=== PATIENT | male | born 1990 | race Caucasian/White ===

== ENCOUNTER 2017-01-09 16:28 | Emergency (ER) | payer OTHER ==
--- NOTE | 2017-01-09 18:22 | DIAGNOSTIC IMAGING REPORT ---
PROCEDURE: XR CHEST 1 VIEW INDICATION: CHEST PAIN TECHNIQUE: Single view chest. 1717 hours COMPARISON: None. FINDINGS: The cardiomediastinal contour and central vasculature are normal. Minor patchy density in the left infrahilar region, questionable. Otherwise clear lungs without effusion or pneumothorax. The osseous structures are intact. IMPRESSION: 1. Questionable patchy parenchymal left infrahilar density. PA and lateral chest is recommended.
--- NOTE | 2017-01-09 18:24 | DIAGNOSTIC IMAGING REPORT ---
PROCEDURE: XR CHEST 2 VIEW INDICATION: CHEST PAIN TECHNIQUE: Two views. COMPARISON: Film performed earlier the same day FINDINGS: The cardiomediastinal contour and central vasculature are within normal limits. Minor hazy parenchymal density in the left infrahilar region with mild peribronchial thickening. No dense consolidations suggest pneumonia. No effusion or pneumothorax. The visualized osseous structures are intact. IMPRESSION: 1. Minor hazy oval density with peribronchial thickening. This may be early bronchitis. Correlate clinically.
--- NOTE | 2017-01-09 19:03 | ED CLINICAL REPORT ---
Clinical Report - Physicians/Mid Levels [facility] [address] [place] [address] 01/09/2017 16:30 Patient: SHAQ VALLADARES Time Seen: 17:04. Arrived- By private vehicle. Historian- patient. HISTORY OF PRESENT ILLNESS Chief Complaint: CHEST PAIN. This started today and is still present but is better now. It was abrupt in onset. Onset during while driving. At its maximum, severity described as 5 / 10. When seen in the E.D., it was almost gone. Modifying factors. Not worsened by anything. It is described as pressure. No radiation. The patient has had nausea. No vomiting, difficulty breathing or diaphoresis. Similar symptoms previously: Several times. Diagnosis: biliary disease (palpitations). REVIEW OF SYSTEMS No chills, fever, sweats, calf pain or cough. No difficulty breathing, pedal edema, abdominal pain, constipation or diarrhea. No nausea, vomiting or urinary problems. He has had palpitations. He has had numbness of the right hand (mild) and left hand (mild). He had a recent echo and has an appointment pending in 2 weeks with a crew trainer in [place]. All systems otherwise negative, except as recorded above. PAST HISTORY Problems: Heart palpatations . Gallstone(s). Additional Surgeries: Gallbladder Surgery. Medications: Cortisol Spacecraft Systems Engineer Oral. Vitamins/Minerals Oral. Allergies: No Known Drug Allergy. SOCIAL HISTORY Never smoker. No alcohol use or drug use. Is an out of state resident. Visiting locally. FAMILY HISTORY Diabetes in first-degree relative (mother and sibling); stroke in grandparent; cancer in grandparent. ADDITIONAL NOTES The nursing notes have been reviewed. PHYSICAL EXAM Vital Signs: 01/09/2017 16:35 BP: 153/97. HR: 80. RR: 18. O2 saturation: 100%. Temp: 98.4 F. Have been reviewed. Appearance: Alert. Anxious. Eyes: Pupils equal, round and reactive to light. ENT: Pharynx normal. Neck: Normal inspection. Neck supple. CVS: Normal heart rate and rhythm. Heart sounds normal. Respiratory: No respiratory distress. Breath sounds normal. Abdomen: Soft and nontender. Bowel sounds normal. No organomegaly. No mass. Back: Normal external inspection. Skin: Skin warm and dry. Normal skin color. No rash. Normal skin turgor. (he did have a mild facial and neck sunburn.). Extremities: Extremities exhibit normal ROM. No calf tenderness. No lower extremity edema. LABS, X-RAYS, AND EKG EKG: No acute process. Normal EKG. Rate: 84. Prior EKG unavailable. The study has been independently viewed by me. Chest X-ray: (IMPRESSION: 1. Questionable patchy parenchymal left infrahilar density. PA and lateral chest is recommended.). The X-rays were interpreted contemporaneously by me and discussed with the radiologist. Chest X-ray #2: (IMPRESSION: 1. Minor hazy oval density with peribronchial thickening. This may be early bronchitis. Correlate clinically). The X-rays were interpreted by the radiologist and contemporaneously by me. Laboratory Tests: UA-Culture if indicated: (MEME: 01/09/2017 18:00) ( [facility] 01/09/2017 18:30) Final results Test Result Flag Units (Reference) URINE COLOR YELLOW URINE APPEARANCE CLEAR URINE GLUCOSE NEGATIVE (NEGATIVE) URINE BILIRUBIN NEGATIVE (NEGATIVE) URINE KETONE NEGATIVE (NEGATIVE) URINE SPECIFIC GRAVITY 1.015 (1.010-1.030) URINE PH 6.0 (5.0-8.0) URINE PROTEIN NEGATIVE (NEGATIVE) URINE UROBILINOGEN 0.2 EU/dL (0.2-1.0) URINE NITRITE NEGATIVE (NEGATIVE) URINE BLOOD NEGATIVE (NEGATIVE) URINE LEUK ESTERASE NEGATIVE (NEGATIVE) URINE RBC NONE SEEN rbc/hpf (0-1) URINE WBC NONE SEEN wbc/hpf (0-1) URINE EPITHELIAL CELLS NONE SEEN EPI/hpf (0-5) URINE BACTERIA NONE SEEN (NONE SEEN) URINE COMMENT CULT NOT INDICATED URINE CULTURES ARE SET-UP BASED ON THE FOLLOWING CRITERIA:POSITIVE NITRITEPOSITIVE LEUKOCYTE ESTERASEGREATER THAN 10 WHITE BLOOD CELLSMODERATE (2+) OR GREATER BACTERIA CBC w Diff: (MEME: 01/09/2017 16:40) ( [facility] 01/09/2017 17:24) Final results Test Result Flag Units (Reference) WHITE BLOOD COUNT 7.7 K/uL (4.5-11.5) RED BLOOD COUNT 5.51 M/uL (4.50-5.90) HEMOGLOBIN 16.7 gm/dL (13.5-17.5) HEMATOCRIT 49.4 % (41.0-53.0) MEAN CELL VOLUME 90 fL (80-100) MEAN CORPUSCULAR HGB 30 pg (26-34) MEAN CORPUSCULAR HGB CONC 34 g/dL (31-37) RED CELL DISTRIBUTION WIDTH 12.3 % (11.6-14.8) PLATELET COUNT 179 K/uL (150-400) NEUTROPHIL % 55.5 % (50-75) LYMPH % 35.4 % (25-40) MONO % 7.1 % (3-14) EOSINOPHIL % 1.7 % (0-4) BASOPHIL % 0.3 % (0-2) [id number]: (MEME: 01/09/2017 16:40) ( [facility] 01/09/2017 17:26) Final results Test Result Flag Units (Reference) D-DIMER QUANTITATIVE < 0.27 L ug/mLFEU (0.27-0.52) The primary value of this quantitative assay relates toits negative predictive value (i.e. exclusion) of pulmonaryembolism/deep vein thrombosis/DIC.Elevated levels of d-dimer may also occur with:, age, cancer, inflammation, liver disease,post-op, infection, hematoma, coronary disease, peripheralarteriopathy, bleeding disorders and thrombolytic treatment.Results should be correlated with other clinical andradiological data.Testing Methodology: Latex Immunoassay BNP: (MEME: 01/09/2017 16:40) ( [facility] 01/09/2017 17:39) Final results Test Result Flag Units (Reference) B-TYPE NATRIURETIC PEPTIDE < 5.0 L pg/ml (5-100) CMP: (MEME: 01/09/2017 16:40) ( [facility] 01/09/2017 17:34) Final results Test Result Flag Units (Reference) GLUCOSE 114 H mg/dL (70-110) BUN 14 mg/dL (7-18) CREATININE 1.1 mg/dL (0.6-1.3) Estimated GFR >60 mL/min Estimated GFR- >60 mL/min Note: Persistent reduction over 3 months in eGFR<60 mL/min/1.73 m2 defines CKD. Patients with eGFR values>=60 mL/min/1.73 m2 may also have CKD if evidence ofpersistent proteinuria. Additional information may be foundat www.kidney.org. SODIUM 143 mmol/L (136-145) POTASSIUM 3.8 mmol/L (3.5-5.1) CHLORIDE 104 mmol/L (98-107) CARBON DIOXIDE 29 mmol/L (21-32) CALCIUM 9.6 mg/dL (8.5-10.1) TOTAL PROTEIN 8.0 g/dL (6.4-8.2) ALBUMIN 4.8 g/dL (3.3-5.0) BILIRUBIN, TOTAL 0.4 mg/dL (0.0-1.0) ALKALINE PHOSPHATASE 90 U/L (46-116) AST (SGOT) 19 U/L (15-37) ALT (SGPT) 28 U/L (12-78) LIPASE 282 U/L (73-393) AMYLASE 61 U/L (25-115) CPK 108 U/L (24-260) TROPONIN I <0.05 L ng/mL (0.00-1.5) TROPONIN REFERENCE RANGE:<0.1 NEGATIVE0.1-1.5 INDETERMINANT>1.5 POSITIVE . PROGRESS AND PROCEDURES Course of Care: Patient is stable. Patient/family counseled. Old medical records ordered. Old records unavailable. Disposition: Discharged. Condition: stable. CLINICAL IMPRESSION First degree sunburn. Anxiety reaction. INSTRUCTIONS Avoid stimulants (such as cigarettes, coffee, cold medicines, sinus medicines, street drugs). (Make certain that you wear plenty of sunscreen!). Warnings: Further evaluation is necessary. GENERAL WARNINGS: Return or contact your physician immediately if your condition worsens or changes unexpectedly, if not improving as expected, or if other problems arise. Follow-up: Follow up with a crew trainer as scheduled. Understanding of the discharge instructions verbalized by patient and family. (Electronically signed by Henry Harvey MD 01/10/2017 12:48) Addenda for SHAQ VALLADARES VisitID: [id number] Date: 01/09/2017 01/09/2017 19:20 [place] [id number] (Electronically signed by Capo Burnette R.N. - 01/09/2017 19:20)
--- NOTE | 2017-01-09 19:03 | ED ORDER SUMMARY ---
..... Patient: SHAQ VALLADARES OrderSheet [facility] VisitID: [id number] [place] [address] 26y, M Registration Date/Time: 01/09/2017 ORDER SHEET Weight: 102.0 kg (stated) Allergies: No Known Drug Allergy GENERAL ORDERS: Chest 1V Urgent (17:05 01/09/2017 aTj SOLIS) (Ack 17:11 Edwin) (17:17 Viviana) First Breaker Feeder (Continuous) (17:05 01/09/2017 Taj SOLIS) (17:29 LWhalen R.N.) CBC w Diff Urgent (17:01/09/2017 Taj SOLIS) (Ack 17:11 Edwin) (17:29 LWhalen R.N.) CMP Urgent (17:01/09/2017 Taj SOLIS) (Ack 17:11 Edwin) (17:29 LWhalen R.N.) UA-Culture if indicated Urgent (17:06 01/09/2017 Taj SOLIS) (Ack 17:11 Edwin) (18:06 ALawrence ER Tech1) Amylase Urgent (17:06 01/09/2017 Taj SOLIS) (Ack 17:11 Edwin) (17:29 LWhalen R.N.) Lipase Urgent (17:01/09/2017 Taj SOLIS) (Ack 17:11 Edwin) (17:29 LWhalen R.N.) BNP Urgent (17:06 01/09/2017 Taj SOLIS) (Ack 17:11 Edwin) (17:29 LWhalen R.N.) D-Dimer Urgent (17:01/09/2017 Taj SOLIS) (Ack 17:11 Edwin) (17:29 LWhalen R.N.) CPK Urgent (17:01/09/2017 Taj SOLIS) (Ack 17:11 Edwin) (17:29 LWhalen R.N.) Troponin-I Urgent (17:06 01/09/2017 Taj SOLIS) (Ack 17:11 Edwin) (17:29 LWfadia R.N.) Oxygen (2 L/min) (NC) (17:06 01/09/2017 Taj SOLIS) (17:29 LWhaljet R.N.) Pulse oximeter (17:01/09/2017 Taj SOLIS) (17:29 LWhaljet R.N.) EKG - ER Stat (17:01/09/2017 Taj SOLIS) (17:11 Edwin) Vitals - Orthostatic (17:01/09/2017 Taj SOLIS) (17:29 LWfadia R.N.) Chest 2V Urgent (17:33 01/09/2017 Edwin verbal order read back to Taj SOLIS) (17:34 Edwin) MEDICATION ORDERS: IV FLUIDS: IV NS : initial bolus 1000 mL (1000 mL/hr), then 125 mL/hr for 4h (NOW); Urgent (17:01/09/2017 Taj SOLIS) (17:30 LWhalen R.N.) IV Saline Lock (17:01/09/2017 Taj SOLIS) (17:30 Sundeep R.N.) ORDER SHEET NOTES: [Electronically signed by Capo Burnette R.N. (19:19 01/09/2017)] [Electronically signed by Henry Harvey MD (12:48 01/10/2017)] [Electronically locked/signed by Capo Burnette R.N. (19:19 01/09/2017)]
--- NOTE | 2017-01-09 19:03 | ED CLINICAL REPORT ---
Clinical Report - Physicians/Mid Levels [facility] [address] [place] [address] 01/09/2017 16:30 Patient: SHAQ VALLADARES Time Seen: 17:04. Arrived- By private vehicle. Historian- patient. HISTORY OF PRESENT ILLNESS Chief Complaint: CHEST PAIN. This started today and is still present but is better now. It was abrupt in onset. Onset during while driving. At its maximum, severity described as 5 / 10. When seen in the E.D., it was almost gone. Modifying factors. Not worsened by anything. It is described as pressure. No radiation. The patient has had nausea. No vomiting, difficulty breathing or diaphoresis. Similar symptoms previously: Several times. Diagnosis: biliary disease (palpitations). REVIEW OF SYSTEMS No chills, fever, sweats, calf pain or cough. No difficulty breathing, pedal edema, abdominal pain, constipation or diarrhea. No nausea, vomiting or urinary problems. He has had palpitations. He has had numbness of the right hand (mild) and left hand (mild). He had a recent echo and has an appointment pending in 2 weeks with a research assoc in [place]. All systems otherwise negative, except as recorded above. PAST HISTORY Problems: Heart palpatations . Gallstone(s). Additional Surgeries: Gallbladder Surgery. Medications: Cortisol Hand Rug Cleaner Oral. Vitamins/Minerals Oral. Allergies: No Known Drug Allergy. SOCIAL HISTORY Never smoker. No alcohol use or drug use. Is an out of state resident. Visiting locally. FAMILY HISTORY Diabetes in first-degree relative (mother and sibling); stroke in grandparent; cancer in grandparent. ADDITIONAL NOTES The nursing notes have been reviewed. PHYSICAL EXAM Vital Signs: 01/09/2017 16:35 BP: 153/97. HR: 80. RR: 18. O2 saturation: 100%. Temp: 98.4 F. Have been reviewed. Appearance: Alert. Anxious. Eyes: Pupils equal, round and reactive to light. ENT: Pharynx normal. Neck: Normal inspection. Neck supple. CVS: Normal heart rate and rhythm. Heart sounds normal. Respiratory: No respiratory distress. Breath sounds normal. Abdomen: Soft and nontender. Bowel sounds normal. No organomegaly. No mass. Back: Normal external inspection. Skin: Skin warm and dry. Normal skin color. No rash. Normal skin turgor. (he did have a mild facial and neck sunburn.). Extremities: Extremities exhibit normal ROM. No calf tenderness. No lower extremity edema. LABS, X-RAYS, AND EKG EKG: No acute process. Normal EKG. Rate: 84. Prior EKG unavailable. The study has been independently viewed by me. Chest X-ray: (IMPRESSION: 1. Questionable patchy parenchymal left infrahilar density. PA and lateral chest is recommended.). The X-rays were interpreted contemporaneously by me and discussed with the radiologist. Chest X-ray #2: (IMPRESSION: 1. Minor hazy oval density with peribronchial thickening. This may be early bronchitis. Correlate clinically). The X-rays were interpreted by the radiologist and contemporaneously by me. Laboratory Tests: UA-Culture if indicated: (MEME: 01/09/2017 18:00) ( [facility] 01/09/2017 18:30) Final results Test Result Flag Units (Reference) URINE COLOR YELLOW URINE APPEARANCE CLEAR URINE GLUCOSE NEGATIVE (NEGATIVE) URINE BILIRUBIN NEGATIVE (NEGATIVE) URINE KETONE NEGATIVE (NEGATIVE) URINE SPECIFIC GRAVITY 1.015 (1.010-1.030) URINE PH 6.0 (5.0-8.0) URINE PROTEIN NEGATIVE (NEGATIVE) URINE UROBILINOGEN 0.2 EU/dL (0.2-1.0) URINE NITRITE NEGATIVE (NEGATIVE) URINE BLOOD NEGATIVE (NEGATIVE) URINE LEUK ESTERASE NEGATIVE (NEGATIVE) URINE RBC NONE SEEN rbc/hpf (0-1) URINE WBC NONE SEEN wbc/hpf (0-1) URINE EPITHELIAL CELLS NONE SEEN EPI/hpf (0-5) URINE BACTERIA NONE SEEN (NONE SEEN) URINE COMMENT CULT NOT INDICATED URINE CULTURES ARE SET-UP BASED ON THE FOLLOWING CRITERIA:POSITIVE NITRITEPOSITIVE LEUKOCYTE ESTERASEGREATER THAN 10 WHITE BLOOD CELLSMODERATE (2+) OR GREATER BACTERIA CBC w Diff: (MEME: 01/09/2017 16:40) ( [facility] 01/09/2017 17:24) Final results Test Result Flag Units (Reference) WHITE BLOOD COUNT 7.7 K/uL (4.5-11.5) RED BLOOD COUNT 5.51 M/uL (4.50-5.90) HEMOGLOBIN 16.7 gm/dL (13.5-17.5) HEMATOCRIT 49.4 % (41.0-53.0) MEAN CELL VOLUME 90 fL (80-100) MEAN CORPUSCULAR HGB 30 pg (26-34) MEAN CORPUSCULAR HGB CONC 34 g/dL (31-37) RED CELL DISTRIBUTION WIDTH 12.3 % (11.6-14.8) PLATELET COUNT 179 K/uL (150-400) NEUTROPHIL % 55.5 % (50-75) LYMPH % 35.4 % (25-40) MONO % 7.1 % (3-14) EOSINOPHIL % 1.7 % (0-4) BASOPHIL % 0.3 % (0-2) [id number]: (MEME: 01/09/2017 16:40) ( [facility] 01/09/2017 17:26) Final results Test Result Flag Units (Reference) D-DIMER QUANTITATIVE < 0.27 L ug/mLFEU (0.27-0.52) The primary value of this quantitative assay relates toits negative predictive value (i.e. exclusion) of pulmonaryembolism/deep vein thrombosis/DIC.Elevated levels of d-dimer may also occur with:, age, cancer, inflammation, liver disease,post-op, infection, hematoma, coronary disease, peripheralarteriopathy, bleeding disorders and thrombolytic treatment.Results should be correlated with other clinical andradiological data.Testing Methodology: Latex Immunoassay BNP: (MEME: 01/09/2017 16:40) ( [facility] 01/09/2017 17:39) Final results Test Result Flag Units (Reference) B-TYPE NATRIURETIC PEPTIDE < 5.0 L pg/ml (5-100) CMP: (MEME: 01/09/2017 16:40) ( [facility] 01/09/2017 17:34) Final results Test Result Flag Units (Reference) GLUCOSE 114 H mg/dL (70-110) BUN 14 mg/dL (7-18) CREATININE 1.1 mg/dL (0.6-1.3) Estimated GFR >60 mL/min Estimated GFR- >60 mL/min Note: Persistent reduction over 3 months in eGFR<60 mL/min/1.73 m2 defines CKD. Patients with eGFR values>=60 mL/min/1.73 m2 may also have CKD if evidence ofpersistent proteinuria. Additional information may be foundat www.kidney.org. SODIUM 143 mmol/L (136-145) POTASSIUM 3.8 mmol/L (3.5-5.1) CHLORIDE 104 mmol/L (98-107) CARBON DIOXIDE 29 mmol/L (21-32) CALCIUM 9.6 mg/dL (8.5-10.1) TOTAL PROTEIN 8.0 g/dL (6.4-8.2) ALBUMIN 4.8 g/dL (3.3-5.0) BILIRUBIN, TOTAL 0.4 mg/dL (0.0-1.0) ALKALINE PHOSPHATASE 90 U/L (46-116) AST (SGOT) 19 U/L (15-37) ALT (SGPT) 28 U/L (12-78) LIPASE 282 U/L (73-393) AMYLASE 61 U/L (25-115) CPK 108 U/L (24-260) TROPONIN I <0.05 L ng/mL (0.00-1.5) TROPONIN REFERENCE RANGE:<0.1 NEGATIVE0.1-1.5 INDETERMINANT>1.5 POSITIVE . PROGRESS AND PROCEDURES Course of Care: Patient is stable. Patient/family counseled. Old medical records ordered. Old records unavailable. Disposition: Discharged. Condition: stable. CLINICAL IMPRESSION First degree sunburn. Anxiety reaction. INSTRUCTIONS Avoid stimulants (such as cigarettes, coffee, cold medicines, sinus medicines, street drugs). (Make certain that you wear plenty of sunscreen!). Warnings: Further evaluation is necessary. GENERAL WARNINGS: Return or contact your physician immediately if your condition worsens or changes unexpectedly, if not improving as expected, or if other problems arise. Follow-up: Follow up with a research assoc as scheduled. Understanding of the discharge instructions verbalized by patient and family. (Electronically signed by Henry Harvey MD 01/10/2017 12:48) Addenda for SHAQ VALLADARES VisitID: [id number] Date: 01/09/2017 01/09/2017 19:20 [place] [id number] (Electronically signed by Capo Burnette R.N. - 01/09/2017 19:20)
--- NOTE | 2017-01-09 19:03 | ED NURSING NOTES ---
Clinical Report - Nurses [facility] [address] [place] [address] 01/09/2017 16:30 Patient: SHAQ VALLADARES TRIAGE Triage time 16:35 Jan 09 2017. Acuity: LEVEL 3. Chief Complaint: CHEST PAIN and (memory loss). JUSTO COMA SCORE: [place] Coma Scale: 15- eyes open spontaneously (4); best verbal response- oriented x 4 (5); best motor response- obeys commands (6). --16:42 Francoise Mayes R.N. 16:35 01/09/17. BP: 153/97. HR: 80. RR: 18. O2 saturation: 100%. Temp: 98.4 F. Pain level now 3/10. --16:42 Francoise Mayes R.N. Weight: 102 kg stated. Height/Length: 74 inches Per Patient. BMI: 28.9. --16:41 Francoise Mayes R.N. Medications Vitamins/Minerals Oral. --16:37 Francoise Mayes R.N. Cortisol Torch Straightener Oral. --16:37 Francoise Mayes R.N. Allergies No Known Drug Allergy. --16:38 Francoise Mayes R.N. History Arrived by private vehicle. Historian: patient. Accompanied by family. This started just prior to arrival. ( Was driving then started to get mixed up on the words he was saying and couldn't get them out. He started having chest pain and heart palpitations.). No difficulty breathing, sweating episodes, nausea, vomiting or fever. No cough. PAST MEDICAL HX: No history of diabetes mellitus, hypertension, heart disease or lung disease. Immunizations: up-to-date. SOCIAL HX: Never smoker. No alcohol use or drug use. SELF HARM ASSESSMENT: A self harm assessment was performed. The patient answered "no" to the question "Have you recently felt down, depressed, or hopeless?" and "Do you have thoughts of harming or killing yourself?". FALL RISK ASSESSMENT: Fall risk assessment completed. No fall risk identified. NUTRITIONAL RISK ASSESSMENT: The nutritional risk assessment revealed no deficiencies. FUNCTIONAL ASSESSMENT: Functional assessment: no impairments noted. LEARNING NEEDS ASSESSMENT: The learning needs assessment revealed no barriers. ABUSE ASSESSMENT: Abuse assessment: (yes) The patient was asked "Do you feel safe in your home?". SKIN INTEGRITY ASSESSMENT: Skin integrity risk assessment completed. No skin integrity risk identified. --16:42 Francoise Mayes R.N. PROBLEMS: Heart palpatations . Gallstone(s). --16:39 Francoise Mayes R.N. ADDITIONAL SURGERIES: Gallbladder Surgery. --16:39 Francoise Mayes R.N. Interventions ID band on patient. --16:42 Francoise Mayes R.N. PHYSICAL ASSESSMENT Ambulatory to room. GENERAL / NEURO / PSYCH: Alert. Oriented X 4. Appears anxious. HEENT: Mucous membranes are pink. RESPIRATORY: Respirations not labored. Breath sounds within normal limits. ( c/o chest pain more pressure then anything per pt). CVS: Normal sinus rhythm noted. Heart sounds within normal limits. Pulses within normal limits. Capillary refill less than 2 seconds. GI / : Abdomen soft and nontender. EXTREMITIES: No lower extremity edema. SKIN: Skin is warm and dry. Skin is non-tender. ( Sunburn). --16:43 Francoise Mayes R.N. NURSING PROGRESS NOTES The initial plan of care for this patient includes an assessment with efforts to address patient positioning, appropriate ambient lighting and comfortable environmental temperature; impairment of the cardiovascular system. tableman, pulse oximeter and NIBP monitor placed on patient. Patient gowned. Head of bed elevated 75 degrees. Reassurance given. Call light placed in reach. Side rails up x 1. Bed placed in lowest position. Brakes of bed on. --16:43 Francoise Mayes R.N. 16:43 01/09/2017 Site #1 started via IV in the left antecubital space with an 20g angiocath, with aseptic technique and good blood return; one attempt. Blood drawn: rainbow set. Labeled in the presence of the patient and sent to the lab. Saline lock flushed with 10 mL saline. --16:43 Francoise Mayes R.N. EKG time: (1640). EKG was ordered, performed by a tech and shown to the ED physician. --17:14 Lety Torres 17:30 01/09/2017 Started bag #1 1000 mL IV Fluids IV NS (Saline); at 999 mL/hr over 1 hour(s) via site #1 via dial-a-flow. Allergies verified and confirmed 5 rights. IV patency established. IV site checked: no pain, redness, or swelling. IV flushed thoroughly pre- and post-medication administration. --17:30 Francoise Mayes R.N. <<STRICKEN ENTRY-- 17:25 01/09/17. BP: 142/80. HR: 83. O2 saturation: 98%. Additional comments: Orthostatic vitals done. Sittin/81, HR 92, Sat 98%. Lyin/85, HR 100, Sat 97%. --17:37 Mauro Oakes ER [employer] --END STRIKE>> Correction. --17:43 Mauro Oakes ER [employer] 17:43 01/09/17. BP: 142/80 taken while lying. HR: 83. O2 saturation: 98%. Additional comments: Orthstatic vitals: Sittin/81 HR 92 Sat 98%. Standin/85 HR 100 Sat 97%. --17:45 Mauro Oakes ER [employer] 18:35 01/09/2017 IV Fluids IV NS Bag Change: bag #1 infused. Total amount infused: 1000. STARTED bag #2 (1000 mL) at 125 mL/hr via IV pump. IV patency established. IV site checked: no pain, redness, or swelling. IV flushed thoroughly. --18:37 Aubree Rodriguez R.N. 18:45 01/09/17. BP: 127/72. HR: 78. RR: 18. O2 saturation: 98%. 18:30 01/09/17. BP: 133/70. HR: 74. RR: 18. O2 saturation: 98%. 18:00 01/09/17. BP: 143/75. HR: 82. RR: 18. O2 saturation: 98%. 17:43 01/09/17. BP: 142/80 taken while lying. HR: 83. O2 saturation: 98%. Additional comments: Orthstatic vitals: Sittin/81 HR 92 Sat 98%. Standin/85 HR 100 Sat 97%. 17:30 01/09/17. BP: 139/78. HR: 77. RR: 18. O2 saturation: 98%. 17:15 01/09/17. BP: 142/80. HR: 76. RR: 11. O2 saturation: 98%. 17:00 01/09/17. BP: 145/82. HR: 78. RR: 17. O2 saturation: 98%. --18:52 Francoise Mayes R.N. ( Report received from Francoise Pinto RN). --19:00 Capo Burnette R.N. 19:09 01/09/2017 IV Fluids IV NS Discontinued: discontinued upon discharge. IV patency established. --19:17 Capo Burnette R.N. DISPOSITION / DISCHARGE 19:09 01/09/2017 Site #1 removed upon discharge. Manual pressure and bandage applied. --19:18 Caop Burnette R.N. Departure time: 19:16. Condition at departure: stable. No learning barriers present. Discharge instructions provided and reviewed with paraffin plant operator and the patient. Reviewed warnings. Reviewed referrals for followup. Patient and paraffin plant operator verbalized understanding. Written instructions provided in Bhutanese. The patient was discharged home and accompanied by paraffin plant operator. He left the Emergency Department ambulatory and via private vehicle. Patient driving. --19:19 Capo Burnette R.N. 19:16 01/09/17. BP: 133/72. HR: 77. RR: 12 (regular and unlabored). O2 saturation: 100% on room air. Pain level now: 09/24. --19:19 Capo Burnette R.N. Locked/Released at 01/09/2017 19:19 by Capo Burnette R.N.
--- NOTE | 2017-01-09 19:03 | ED ORDER SUMMARY ---
..... Patient: SHAQ VALLADARES OrderSheet [facility] VisitID: [id number] [place] [address] 26y, M Registration Date/Time: 01/09/2017 ORDER SHEET Weight: 102.0 kg (stated) Allergies: No Known Drug Allergy GENERAL ORDERS: Chest 1V Urgent (17:05 01/09/2017 Taj SOLIS) (Ack 17:11 Edwin) (17:17 Viviana) Incinerator Plant General Supervisor (Continuous) (17:05 01/09/2017 Taj SOLIS) (17:29 LWhalen R.N.) CBC w Diff Urgent (17:01/09/2017 Taj SOLIS) (Ack 17:11 Edwin) (17:29 LWhalen R.N.) CMP Urgent (17:01/09/2017 Taj SOLIS) (Ack 17:11 Edwin) (17:29 LWhalen R.N.) UA-Culture if indicated Urgent (17:06 01/09/2017 Taj SOLIS) (Ack 17:11 Edwin) (18:06 ALawrence ER Tech1) Amylase Urgent (17:06 01/09/2017 Taj SOLIS) (Ack 17:11 Edwin) (17:29 LWhalen R.N.) Lipase Urgent (17:01/09/2017 Taj SOLIS) (Ack 17:11 Edwin) (17:29 LWhalen R.N.) BNP Urgent (17:06 01/09/2017 Taj SOLIS) (Ack 17:11 Edwin) (17:29 LWhalen R.N.) D-Dimer Urgent (17:01/09/2017 Taj SOLIS) (Ack 17:11 Edwin) (17:29 LWhalen R.N.) CPK Urgent (17:01/09/2017 Taj SOLIS) (Ack 17:11 Edwin) (17:29 LWhalen R.N.) Troponin-I Urgent (17:06 01/09/2017 Taj SOLIS) (Ack 17:11 Edwin) (17:29 LWfadia R.N.) Oxygen (2 L/min) (NC) (17:06 01/09/2017 Taj SOLIS) (17:29 LWhaljet R.N.) Pulse oximeter (17:01/09/2017 Taj SOLIS) (17:29 LWhaljet R.N.) EKG - ER Stat (17:01/09/2017 Taj SOLIS) (17:11 Edwin) Vitals - Orthostatic (17:01/09/2017 Taj SOLIS) (17:29 LWfadia R.N.) Chest 2V Urgent (17:33 01/09/2017 Edwin verbal order read back to Taj SOLIS) (17:34 Edwin) MEDICATION ORDERS: IV FLUIDS: IV NS : initial bolus 1000 mL (1000 mL/hr), then 125 mL/hr for 4h (NOW); Urgent (17:01/09/2017 Taj SOLIS) (17:30 LWhalen R.N.) IV Saline Lock (17:01/09/2017 Taj SOLIS) (17:30 Sundeep R.N.) ORDER SHEET NOTES: [Electronically signed by Capo Burnette R.N. (19:19 01/09/2017)] [Electronically signed by Henry Harvey MD (12:48 01/10/2017)] [Electronically locked/signed by Capo Burnette R.N. (19:19 01/09/2017)]
--- NOTE | 2017-01-09 19:03 | ED NURSING NOTES ---
Clinical Report - Nurses [facility] [address] [place] [address] 01/09/2017 16:30 Patient: SHAQ VALLADARES TRIAGE Triage time 16:35 Jan 09 2017. Acuity: LEVEL 3. Chief Complaint: CHEST PAIN and (memory loss). JUSTO COMA SCORE: [place] Coma Scale: 15- eyes open spontaneously (4); best verbal response- oriented x 4 (5); best motor response- obeys commands (6). --16:42 Francoise Mayes R.N. 16:35 01/09/17. BP: 153/97. HR: 80. RR: 18. O2 saturation: 100%. Temp: 98.4 F. Pain level now 3/10. --16:42 Francoise Mayes R.N. Weight: 102 kg stated. Height/Length: 74 inches Per Patient. BMI: 28.9. --16:41 Francoise Mayes R.N. Medications Vitamins/Minerals Oral. --16:37 Francoise Mayes R.N. Cortisol Proposal Engineer Oral. --16:37 Francoise Mayes R.N. Allergies No Known Drug Allergy. --16:38 Francoise Mayes R.N. History Arrived by private vehicle. Historian: patient. Accompanied by family. This started just prior to arrival. ( Was driving then started to get mixed up on the words he was saying and couldn't get them out. He started having chest pain and heart palpitations.). No difficulty breathing, sweating episodes, nausea, vomiting or fever. No cough. PAST MEDICAL HX: No history of diabetes mellitus, hypertension, heart disease or lung disease. Immunizations: up-to-date. SOCIAL HX: Never smoker. No alcohol use or drug use. SELF HARM ASSESSMENT: A self harm assessment was performed. The patient answered "no" to the question "Have you recently felt down, depressed, or hopeless?" and "Do you have thoughts of harming or killing yourself?". FALL RISK ASSESSMENT: Fall risk assessment completed. No fall risk identified. NUTRITIONAL RISK ASSESSMENT: The nutritional risk assessment revealed no deficiencies. FUNCTIONAL ASSESSMENT: Functional assessment: no impairments noted. LEARNING NEEDS ASSESSMENT: The learning needs assessment revealed no barriers. ABUSE ASSESSMENT: Abuse assessment: (yes) The patient was asked "Do you feel safe in your home?". SKIN INTEGRITY ASSESSMENT: Skin integrity risk assessment completed. No skin integrity risk identified. --16:42 Francoise Mayes R.N. PROBLEMS: Heart palpatations . Gallstone(s). --16:39 Francoise Mayes R.N. ADDITIONAL SURGERIES: Gallbladder Surgery. --16:39 Francoise Mayes R.N. Interventions ID band on patient. --16:42 Francoise Mayes R.N. PHYSICAL ASSESSMENT Ambulatory to room. GENERAL / NEURO / PSYCH: Alert. Oriented X 4. Appears anxious. HEENT: Mucous membranes are pink. RESPIRATORY: Respirations not labored. Breath sounds within normal limits. ( c/o chest pain more pressure then anything per pt). CVS: Normal sinus rhythm noted. Heart sounds within normal limits. Pulses within normal limits. Capillary refill less than 2 seconds. GI / : Abdomen soft and nontender. EXTREMITIES: No lower extremity edema. SKIN: Skin is warm and dry. Skin is non-tender. ( Sunburn). --16:43 Francoise Mayes R.N. NURSING PROGRESS NOTES The initial plan of care for this patient includes an assessment with efforts to address patient positioning, appropriate ambient lighting and comfortable environmental temperature; impairment of the cardiovascular system. monitoring specialist, pulse oximeter and NIBP monitor placed on patient. Patient gowned. Head of bed elevated 75 degrees. Reassurance given. Call light placed in reach. Side rails up x 1. Bed placed in lowest position. Brakes of bed on. --16:43 Francoise Mayes R.N. 16:43 01/09/2017 Site #1 started via IV in the left antecubital space with an 20g angiocath, with aseptic technique and good blood return; one attempt. Blood drawn: rainbow set. Labeled in the presence of the patient and sent to the lab. Saline lock flushed with 10 mL saline. --16:43 Francoise Mayes R.N. EKG time: (1640). EKG was ordered, performed by a tech and shown to the ED physician. --17:14 Lety Torres 17:30 01/09/2017 Started bag #1 1000 mL IV Fluids IV NS (Saline); at 999 mL/hr over 1 hour(s) via site #1 via dial-a-flow. Allergies verified and confirmed 5 rights. IV patency established. IV site checked: no pain, redness, or swelling. IV flushed thoroughly pre- and post-medication administration. --17:30 Francoise Mayes R.N. <<STRICKEN ENTRY-- 17:25 01/09/17. BP: 142/80. HR: 83. O2 saturation: 98%. Additional comments: Orthostatic vitals done. Sittin/81, HR 92, Sat 98%. Lyin/85, HR 100, Sat 97%. --17:37 Mauro Oakes ER [employer] --END STRIKE>> Correction. --17:43 Mauro Oakes ER [employer] 17:43 01/09/17. BP: 142/80 taken while lying. HR: 83. O2 saturation: 98%. Additional comments: Orthstatic vitals: Sittin/81 HR 92 Sat 98%. Standin/85 HR 100 Sat 97%. --17:45 Mauro Oakes ER [employer] 18:35 01/09/2017 IV Fluids IV NS Bag Change: bag #1 infused. Total amount infused: 1000. STARTED bag #2 (1000 mL) at 125 mL/hr via IV pump. IV patency established. IV site checked: no pain, redness, or swelling. IV flushed thoroughly. --18:37 Aubree Rodriguez R.N. 18:45 01/09/17. BP: 127/72. HR: 78. RR: 18. O2 saturation: 98%. 18:30 01/09/17. BP: 133/70. HR: 74. RR: 18. O2 saturation: 98%. 18:00 01/09/17. BP: 143/75. HR: 82. RR: 18. O2 saturation: 98%. 17:43 01/09/17. BP: 142/80 taken while lying. HR: 83. O2 saturation: 98%. Additional comments: Orthstatic vitals: Sittin/81 HR 92 Sat 98%. Standin/85 HR 100 Sat 97%. 17:30 01/09/17. BP: 139/78. HR: 77. RR: 18. O2 saturation: 98%. 17:15 01/09/17. BP: 142/80. HR: 76. RR: 11. O2 saturation: 98%. 17:00 01/09/17. BP: 145/82. HR: 78. RR: 17. O2 saturation: 98%. --18:52 Francoise Mayes R.N. ( Report received from Francoise Pinto RN). --19:00 Capo Burnette R.N. 19:09 01/09/2017 IV Fluids IV NS Discontinued: discontinued upon discharge. IV patency established. --19:17 Capo Burnette R.N. DISPOSITION / DISCHARGE 19:09 01/09/2017 Site #1 removed upon discharge. Manual pressure and bandage applied. --19:18 Capo Burnette R.N. Departure time: 19:16. Condition at departure: stable. No learning barriers present. Discharge instructions provided and reviewed with fire prevention chief and the patient. Reviewed warnings. Reviewed referrals for followup. Patient and fire prevention chief verbalized understanding. Written instructions provided in Malawian. The patient was discharged home and accompanied by fire prevention chief. He left the Emergency Department ambulatory and via private vehicle. Patient driving. --19:19 Capo Burnette R.N. 19:16 01/09/17. BP: 133/72. HR: 77. RR: 12 (regular and unlabored). O2 saturation: 100% on room air. Pain level now: 09/24. --19:19 Capo Burnette R.N. Locked/Released at 01/09/2017 19:19 by Capo Burnette R.N.
--- NOTE | 2017-01-10 12:48 | ED MED RECONCILIATION SUMMARY ---
Patient: SHAQ VALLADARES Medication Reconciliation Report [facility] VisitID: [id number] [address] [place] [address] 26y, M Registration Date/Time: 01/09/2017 Weight: 102.0 kg Height/Length: 74 in. BMI: 28.9 ALLERGIES: No Known Drug Allergy The patient's Home Medications are listed below: THE FOLLOWING MEDICATIONS NEED TO BE RECONCILED: Cortisol Experienced Truck Driver Oral Vitamins/Minerals Oral The source(s) of the original Home Medication information: Not obtained. The following Medications were given to the patient in the Emergency Department: IV NS IV Fluids bolus 0, then 999 mL/hr, administered: 01/09/2017 5:30:00 PM The following Medications were prescribed to the patient: None.
--- NOTE | 2017-01-10 12:48 | ED MAR SUMMARY ---
..... Medication Administration Record [facility] [address] [place] [address] Patient: SHAQ VALLADARES Visit ID: [id number] 26y, M Weight: 102.0 kg Height/Length: 74 in BMI: 28.9 ALLERGIES: No Known Drug Allergy Start 17:30 01/09/2017 Francoise Mayes RAndieNAndie, Stop 19:09 01/09/2017 Capo Burnette RAndieN. Medication Administered: IV NS (SALINE), Dose: IV Fluids over 1 hour(s), Rate: 999 mL/hr, Dispensed: 1000 mL bag, Site: #1 left AC. Medication Ordered: IV NS : initial bolus 1000 mL (1000 mL/hr), then 125 mL/hr for 4h (NOW); Urgent.
--- NOTE | 2017-01-10 12:48 | ED MED RECONCILIATION SUMMARY ---
Patient: SHAQ VALLADARES Medication Reconciliation Report [facility] VisitID: [id number] [address] [place] [address] 26y, M Registration Date/Time: 01/09/2017 Weight: 102.0 kg Height/Length: 74 in. BMI: 28.9 ALLERGIES: No Known Drug Allergy The patient's Home Medications are listed below: THE FOLLOWING MEDICATIONS NEED TO BE RECONCILED: Cortisol Tire Center Manager Oral Vitamins/Minerals Oral The source(s) of the original Home Medication information: Not obtained. The following Medications were given to the patient in the Emergency Department: IV NS IV Fluids bolus 0, then 999 mL/hr, administered: 01/09/2017 5:30:00 PM The following Medications were prescribed to the patient: None.
--- NOTE | 2017-01-10 12:48 | ED DISCHARGE INSTRUCTIONS ---
Patient: SHAQ VALLADARES General Instructions [facility] VisitID: [id number] [place] [address] 26y, M Registration Date/Time: 01/09/2017 First degree sunburn. Anxiety reaction. INSTRUCTIONS Avoid stimulants (such as cigarettes, coffee, cold medicines, sinus medicines, street drugs). (Make certain that you wear plenty of sunscreen!). Warnings: Further evaluation is necessary. GENERAL WARNINGS: Return or contact your physician immediately if your condition worsens or changes unexpectedly, if not improving as expected, or if other problems arise. Follow-up: Follow up with a inventory associate as scheduled. Understanding of the discharge instructions verbalized by patient and family. ADDITIONAL INFORMATION Stress Reaction Anxiety is the feeling we all get when we think something bad might happen. It is a normal response to stress and usually causes only a mild reaction. When anxiety becomes more severe, emotions may interfere with daily life. In some cases, you may not even be aware of what it is youre anxious about! During an anxiety reaction, you may feel like you are helpless, nervous, depressed or irritable. Your body may show signs of anxiety in many ways. You may experience dry mouth, shakiness, dizziness, weakness, trouble breathing, chest pressure, headache, nausea, diarrhea, tiredness, inability to sleep or sexual problems. Home Care: 1) Try to locate the sources of stress in your life. They may not be obvious! These may include: -- Daily hassles of life which pile up (traffic jams, missed appointments, car troubles, etc.) -- Major life changes, both good (new baby, job promotion) and bad (loss of job, loss of loved one) -- Overload: feeling that you have too many responsibilities and can't take care of all of them at once -- Feeling helpless, feeling that your problems are beyond what youre able to solve 2) Notice how your body reacts to stress. Learn to listen to your body signals. This will help you take action before the stress becomes severe. 3) When you can, do something about the source of your stress. (Avoid hassles, limit the amount of change that happens in your life at one time and take a break when you feel overloaded). 4) Unfortunately, many stressful situations cannot be avoided. It is necessary to learn HOW TO MANAGE STRESS better. There are many proven methods that will reduce your anxiety. These include simple things like exercise, good nutrition and adequate rest. Also, there are certain techniques that are helpful: relaxation and breathing exercises, visualization, biofeedback and meditation. For more information about this, consult your doctor or go to a local bookstore and review the many books and tapes available on this subject. Follow Up If you feel that your anxiety is not responding to self-help measures, contact your doctor or make an appointment with a counselor. Get Prompt Medical Attention if any of the following occur: -- Your symptoms get worse -- Chest pain or trouble breathing -- Severe headache not relieved by rest and mild pain reliever -- Rapid or irregular heartbeat, fainting Panic Attack A panic attack is an extreme fear reaction that comes on for no apparent reason. Symptoms may include pounding or racing heartbeat, shortness of breath, dizziness, weakness and sweating. There is usually a fear that something terrible will happen or that you may . The attack may last a few minutes up to a few hours. Between attacks things will seem quite normal. This condition has a psychological cause and can be treated with the help of a therapist or psychiatrist. Medication is often used and can be very helpful for this problem. Home Care: Try to identify the sources of stress in your life. It may not be obvious! These may include: Daily hassles of life which pile up (traffic jams, missed appointments, car troubles, etc.). Major life changes, both good (new baby, job promotion) and bad (loss of job, loss of loved one). Overload: feeling that you have too many responsibilities and can't take care of everything at once. Helplessness: feeling like your problems are too much for you to handle. Notice how your body reacts to stress. Learn to listen to your body signals so that you can take action before the stress becomes severe. When possible, AVOID or REDUCE THE CAUSE OF STRESS. Avoid hassles, limit the amount of change that is happening in your life at one time or take a break when you feel overloaded. Unfortunately, many stressful situations cannot be avoided. Therefore, it is necessary to LEARN HOW TO MANAGE STRESS better. There are many proven methods that work and will reduce your anxiety. These include simple things like exercise, good nutrition and adequate rest. Also, there are certain techniques that are helpful: relaxation and breathing exercises, visualization, biofeedback, meditation or simply taking some time-out to clear your mind. For more information about this, consult your doctor or go to a local bookstore and review the many books and tapes available on this subject. Follow Up with your doctor or a therapist as advised. Get Prompt Medical Attention if any of the following occur: Worsening of your symptoms to the point of feeling [id number] A change in the type of pain: if it feels different, becomes more severe, lasts longer, or begins to spread into your shoulder, arm, neck, jaw or back Shortness of breath or increased pain with breathing Increasing feeling of weakness or dizziness Fainting Cough with dark colored sputum (phlegm) or blood Fever of 100.4F (38C) or higher, or as directed by your healthcare provider Swelling, pain or redness in one leg Sunburn A sunburn is an injury to the skin caused by over-exposure to ultraviolet (UV) light from the sun. The skin becomes pink or red and painful. There may be headache and a low grade fever. Very severe sunburns may cause blistering and fluid draining from the skin. Open blisters may become infected, so watch for the signs below. The reaction begins to get better after 12 days. A few days later the skin begins to peel. Depending on how severe the burn is, it may take up to three weeks to fully heal. Home care The following guidelines will help you care for you sunburn at home: 1) Apply an ice pack (ice cubes in a plastic bag, wrapped in a towel) over the injured area for 20 minutes every 12 hours the first day for pain relief. Continue this 34 times a day until the pain goes away. Cool baths and showers will also give relief. 2) Pblu-vvq-pygylyy first-aid creams and sprays contain lidocaine or benzocaine, an anesthetic which also relieves pain. However, some persons are sensitive to "winston". If redness or itching increases, discontinue their use. 3) If blisters appear, don't break them. Open blisters slow the healing process and increase the risk of infection. Treat open blisters with antibacterial cream or ointment. 4) Wash the burned area daily with soap and water. Pat dry with a clean towel. Apply a moisturizing cream with aloe. Hydrocortisone cream (sold over the counter) may help decrease pain and swelling and speed up healing. If a dressing was applied, reapply it until any open blisters dry up. If the bandage sticks, soak it off in warm water. 5) You may use ibuprofen or naproxen to control pain, unless another pain medicine was prescribed. If you have chronic liver or kidney disease or ever had a stomach ulcer or GI bleeding, talk with your doctor before using these medicines. Do not use ibuprofen in children under six months of age. 6) Drink plenty of fluids to avoid dehydration. Prevention Sun exposure damages the DNA of skin cells and contributes to aging skin. It is the main cause of skin cancer. Protect your skin using the tips below: Limit your exposure to UV light. The sun is strongest during the hours 10 a.m. and 4 p.m. If possible, arrange your sun exposure to be before or after those hours. The effect is more intense at the beach where light reflects off the sand and water, and at higher altitudes, especially where there is reflecting snow. You can even get a sunburn on a cloudy day, since most of the UV light passes through clouds. Cover up with clothing and a hat. Clothing is more effective than sunscreen in blocking UV light. Stay in the shade or carry an umbrella. Apply sunscreen to uncovered skin. Reapply every two hours, and sooner if it is washed away by sweating or water. Use a sunscreen rated at SPF 15 or higher. Wear sunglasses to protect your eyes from UV exposure. Many heart, nausea, anti-inflammatory, and diabetic medications, as well as antibiotics and diuretics, can increase yoursensitivityto the sun. Check medication pamphlets and talk with your doctor if you are unsure about your increased risk of sun sensitivity. Sunscreens may not prevent this response. Follow-up care Most sunburns heal without infection. Occasionally an infection may occur despite proper treatment. Therefore, watch for the signs of infection listed below. When to seek medical care Get prompt medical attention if any of the following occur: Increasing pain Increasing redness, or red streaks leading away from an open blister Swelling or pus coming from open blisters Fever over 100.4 F (38.0 C) You have been given the following additional information: Anxiety Reaction Panic Attack Sunburn (Electronically signed by Henry Harvey MD 01/10/2017 12:48)
--- NOTE | 2017-01-10 12:48 | ED MAR SUMMARY ---
..... Medication Administration Record [facility] [address] [place] [address] Patient: SHAQ VALLADARES Visit ID: [id number] 26y, M Weight: 102.0 kg Height/Length: 74 in BMI: 28.9 ALLERGIES: No Known Drug Allergy Start 17:30 01/09/2017 Francoise Mayes RAndieNAndie, Stop 19:09 01/09/2017 Capo Burnette RAndieN. Medication Administered: IV NS (SALINE), Dose: IV Fluids over 1 hour(s), Rate: 999 mL/hr, Dispensed: 1000 mL bag, Site: #1 left AC. Medication Ordered: IV NS : initial bolus 1000 mL (1000 mL/hr), then 125 mL/hr for 4h (NOW); Urgent.
== END 2017-01-09 19:17 | disposition home or self-care (01) ==
LOC: ED SRH 16:28
DX: F41.1 Generalized anxiety disorder (principal); L55.0 Sunburn of first degree; R91.8 Other nonspecific abnormal finding of lung field
CPT/HCPCS: 90004; 90100; 90616; 91320; 91556; 92235; 92530; 92610; 95059